=== PATIENT | male | born 1950 | race Caucasian/White ===

== ENCOUNTER 2017-12-08 01:45 | Emergency (ER) | payer MEDICARE, OTHER ==
[2017-12-08] MEDS ORDERED: Ketorolac Tromethamine 60 MG/2 ML VIAL ONE (06:03)
--- NOTE | 2017-12-08 09:21 | CT ---
PRELIMINARY REPORT/[facility]/EMERGENTY AFTER-HOURS PROCEDURE CT Abdomen and Pelvis Without Intravenous Contrast CLINICAL HISTORY: 67 years old, male; Injury or trauma; Fall; Initial encounter; Abrasion; Patient HX: [id number] presented to ed C/O worsening lower back pain since falling 2 weeks ago. Pt reports its mostly midline and worsen s whenever he stands up or moves. Pt denies leg movement exacerbating the pain. Pt denies abdominal p ain. Pt denies loss of bowel or bladder function. TECHNIQUE: Axial computed tomography images of the abdomen and pelvis without intravenous contrast. Coronal and sagittal reformatted images were created and reviewed. COMPARISON: No relevant prior studies available. FINDINGS: Lung bases: The visualized portions of the lung bases are normal. ABDOMEN: Liver: The liver is within normal limits for this noncontrast study. Punctate hypodensities in the li perlita dome are noted representing cysts but too small to fully characterize. Gallbladder and bile ducts: Multiple calcified gallstones are present. No ductal dilation. Pancreas: The pancreas appears normal. No ductal dilation. Spleen: There is a focal splenic hypodensity that cannot be further characterized on the current exam ination. Adrenals: The adrenal glands are normal. Kidneys and ureters: There is a simple cyst in the left kidney. There is a simple cyst in the right k idney. There are nonobstructing renal pelvic calculi on the RIGHT and possibly LEFT. Stomach and bowel: The stomach is normal. The duodenum is unremarkable. Moderate diverticulosis is pr esent in the sigmoid and descending colon. There is moderate colonic constipation. No obstruction. No mucosal thickening. Appendix: Normal appendix is possibly identified. No associated signs to suggest acute appendicitis. PELVIS: Bladder: The bladder is normal. No stones. Reproductive: The prostate gland demonstrates nonspecific parenchymal calcifications. ABDOMEN and PELVIS: Intraperitoneal space: Normal. No free air. No significant fluid collection. Bones/joints: There is an acute transverse fracture of the L1 vertebral body with less than 25% loss of vertebral body height and no retropulsion. No dislocation. Soft tissues: Normal. Vasculature: The vasculature demonstrates diffuse mild atherosclerotic calcification. No abdominal ao rtic aneurysm. Lymph nodes: Normal. No enlarged lymph nodes. IMPRESSION: Transverse L1 vertebral body fracture without retropulsion as above. Thank you for allowing us to participate in the care of your patient. Dictated and Authenticated by: Rayshawn Dunham MD 12/08/2017 6:27 AM Central Time ([place] & [place]) FINAL REPORT CT ABDOMEN AND PELVIS PERFORMED WITHOUT CONTRAST ENHANCEMENT: HISTORY: The patient is status post fall approximately 2 weeks ago. Persistent midline pain. FINDINGS: The lung bases are clear of any infiltrative process. No acute rib fractures are identified. The liver shows some small hypodensities in the dome, statistically most likely cysts. There is also a hypodense indistinct area within the spleen which measures 3 cm in size. It does not have the typ ical appearance of a splenic injury. It may represent some type of splenic mass incompletely charact erized on this exam. Given the history of the injury being approximately 2 weeks ago, it is possible that this is related to an older splenic injury. It would probably better characterized with contra st if indicated. The pancreas is atrophic and there are gallstones present. Right and left adrenal glands are normal in appearance. Hypodensities involving both kidneys are sta tistically most likely cysts. There are also bilateral nonobstructing calculi. There is no signific ant periaortic adenopathy. The aorta is ectatic but not aneurysmal. A moderate amount of stool is s een within the colon. CT OF PELVIS PERFORMED WITHOUT CONTRAST ENHANCEMENT: Sigmoid diverticulosis is noted. Appendix region is unremarkable. Review of osseous structures shows the presence of a superior end plate compression fracture of L1 of approximately 20%. This does appear to be more of an acute injury. No significant retropulsion see n. No canal stenosis. IMPRESSION: 1. Approximately 20% compression fracture of the superior end plate of L1. No evidence of any signi ficant bony retropulsion. 2. Incompletely characterized indistinct hypodensity measuring approximately 3 cm in size within the spleen. This could represent a splenic lesion such as a hemangioma; however, given the history of t rauma approximately 2 weeks ago, the possibility that this represents residual of the splenic injury should also be considered. This was discussed with Dr. Ramirez and the patient is still within the ER . I would suggest that possibly a contrast CT may help in better delineating this. 3. Gallstones and nonobstructing renal calculi. 4. Enlarged prostate. 5. Sigmoid diverticulosis. 6. Hypodensities involving the liver and kidney, most likely cysts. 7. This report is in agreement with the temporary report issued by [facility]. CODE CR POS: TPC
[2017-12-08 09:26] LABS: BUN (Urea Nitrogen) 18 mg/dL (8.4-25.7); Calc. Creatinine Clearance 0 mL/min (70-130); Calcium 9.5 mg/dL (7.8-10.44); Carbon Dioxide 27 mmol/L (23-31); Chloride 98 mmol/L (98-107); Estimated GFR-MDRD 37; Glucose 110 mg/dL (80-115); Potassium 4.7 mmol/L (3.5-5.1); Sodium 133 mmol/L (136-145)
[2017-12-08 09:41] LABS: Anion Gap 16 mmol/L (10-20)
[2017-12-08 10:14] LABS: Bilirubin Negative (Negative); Clarity CLOUDY (Clear); Glucose, Urine (Dipstick) Negative (Negative); Leukocyte Large (Negative); Nitrite Negative (Negative); Protein, Urine (Dipstick) Trace mg/dL (Neg-Trace); Specific Gravity, Urine 1.007 (1.002-1.036); pH, Urine 6.5 (5.0-9.0)
[2017-12-08 10:15] LABS: Blood, Urine Trace (Negative); RBC/HPF 0-3 HPF (0-3); Squamous Epithelial None Seen HPF (0-3)
[2017-12-08 10:16] LABS: Bacteria/HPF 2+ HPF (None Seen); Hyaline Casts/LPF NONE SEEN LPF (0-3 Hyaline)
--- NOTE | 2017-12-08 11:10 | CT ---
CT ABDOMEN AND PELVIS WITH CONTRAST: Date: 12/08/17 HISTORY: Patient fell 2 weeks ago with worsening low back pain and midline abdominal pain. COMPARISON: CT abdomen/pelvis without contrast dated 12/08/17. TECHNIQUE: Multiple contiguous axial images were obtained in a CT of the abdomen and pelvis with contrast. Coron al reformats were performed. FINDINGS: There are gallstones in the gallbladder. There is a hypodense region in the spleen measuring 3.4 cm in size which does not appear to demonstra te enhancement. This is nonspecific and could represent a cystic lesion. A splenic contusion is also a possibility. There are small exophytic hypodensities extending off the posterior aspect of both kidneys which like ly represent cysts. There are nonobstructing calcifications in both kidneys measuring up to 3.0 mm in size. A subcentimeter hypodensity along the dome of the left lobe of the liver likely represents a cyst. The adrenal glands and pancreas are unremarkable. No free air, free fluid, or stranding changes are s een in the abdomen or pelvis. Scattered diverticula are seen in the colon. The small bowel and appendix are unremarkable. No abdomi nal or pelvic lymphadenopathy seen. Atherosclerotic calcifications are seen in the aorta. Degenerative changes are seen in the spine. The visualized inferior thorax and abdominal wall soft ti ssues are unremarkable. IMPRESSION: 1. The splenic hypodensity is nonspecific. This could represent a splenic lesion such as a cyst. A c ontusion is also a possibility. A follow-up CT in 3 months is recommended to ensure stability and charlene luate for resolution. 2. Cholelithiasis. 3. Bilateral renal cysts. 4. Bilateral nonobstructing renal calcifications. 5. Diverticulosis. POS: NELDA
[2017-12-08] MEDS ORDERED: Amoxicillin/Potassium Clav 875 MG TAB ONE (11:12)
[2017-12-08] MEDS ORDERED: Iopamidol 370 76% 100 ML VIAL ONE (13:50)
== END 2017-12-08 12:11 | disposition home or self-care (01) ==
LOC: ERS 01:45
DX: S32.019A Unspecified fracture of first lumbar vertebra, initial encounter for closed fracture (principal); N39.0 Urinary tract infection, site not specified; I10 Essential (primary) hypertension; J44.9 Chronic obstructive pulmonary disease, unspecified; F17.210 Nicotine dependence, cigarettes, uncomplicated; W19.XXXA Unspecified fall, initial encounter
CPT/HCPCS: 36415; 74176; 74177; 80048; 81003; 81015; 87086; 96372; J1885

== ENCOUNTER 2020-05-02 13:35 | Inpatient (IN) | payer MEDICARE, OTHER ==
[2020-05-02 14:25] LABS: #Eosinphils 0.1 thou/uL (0.0-0.7); #Lymphocytes 1.5 thou/uL (1.20-3.40); #Neutrophils 14.1 thou/uL (1.40-6.50); %Basophils 0.1 % (0.0-1.0); %Eosinophils 0.7 % (0.0-10.0); %Lymphocytes 9.2 % (21.0-51.0); %Monocytes 5.7 % (0.0-10.0); %Neutrophils 84.3 % (42.0-75.0); Hemoglobin 17.6 g/dL (14.0-18.0); Mean Corpuscular HGB CONC 32.9 g/dL (32.0-36.0); Mean Corpuscular Hemoglobin 31.9 pg (27.0-31.0); Mean Corpuscular Volume 96.9 fL (78.0-98.0); Mean Platelet Volume 8.3 fL (7.4-10.4); Platelet Count 186 thou/uL (130-400); Red Blood Cell (RBC) Count 5.51 mill/uL (4.70-6.10); White Blood Cell (WBC) Count 16.7 thou/uL (4.8-10.8)
[2020-05-02] MEDS ORDERED: Ondansetron PF 4 MG/2 ML Vial ONE (14:31)
[2020-05-02] MEDS ORDERED: Morphine 4 MG/ML VIAL ONE ×2 (14:31→15:42)
[2020-05-02 14:48] LABS: AST (SGOT) 17 U/L (5-34); Anion Gap 20 mmol/L (10-20); Bilirubin, Total 0.9 mg/dL (0.2-1.2); Calc. Creatinine Clearance 0 mL/min (70-130); Calcium 8.3 mg/dL (7.8-10.44); Carbon Dioxide 23 mmol/L (23-31); Chloride 98 mmol/L (98-107); Estimated GFR-MDRD 62; Potassium 3.5 mmol/L (3.5-5.1); Protein, Total 6.7 g/dL (5.8-8.1); Sodium 137 mmol/L (136-145)
[2020-05-02 14:56] LABS: Albumin 3.6 g/dL (3.4-4.8); Globulin 3.1 g/dL (2.4-3.5)
[2020-05-02 15:02] LABS: Alkaline Phosphatase 108 U/L (40-110)
[2020-05-02 15:05] LABS: ALT (SGPT) 9 U/L (8-55); CK (CPK) 49 U/L (30-200)
--- NOTE | 2020-05-02 15:09 | RAD ---
EXAM: Single view of the chest HISTORY: Shortness of breath COMPARISON: 01/01/2015 FINDINGS: Single view of the chest shows an enlarged but stable cardiomediastinal silhouette. Athero sclerotic calcifications are seen in the aorta. There is no evidence of consolidation, mass, or pleural effusion. Degenerative changes are seen in the spine. IMPRESSION: No evidence of acute cardiopulmonary disease
--- NOTE | 2020-05-02 15:13 | RAD ---
EXAM: 2 views of the left hip HISTORY: Left hip pain after fall COMPARISON: None FINDINGS: 2 views of the left hip shows questionable malalignment along the inferior aspect of the fe moral neck which could represent an impacted minimally displaced femoral neck fracture. No degenerative changes are seen. No soft tissue swelling is present. IMPRESSION: Questionable left femoral neck fracture. A CT of the left hip is recommended for further evaluation.
--- NOTE | 2020-05-02 15:13 | RAD ---
Exam: Single view of the pelvis HISTORY: Pelvic and hip pain after fall COMPARISON: None FINDINGS: A single view the pelvis shows questionable malalignment of the cortex of the inferior aspe ct of the femoral neck which could represent a nondisplaced impacted femoral neck fracture. No degenerative changes seen in either hip. IMPRESSION: Possible left femoral neck fracture
[2020-05-02 15:33] LABS: Glucose 152 mg/dL (80-115)
--- NOTE | 2020-05-02 15:48 | CT ---
CT CERVICAL SPINE NONCONTRAST: DATE: 05/02/2020 HISTORY: cervical trauma: 69-year-old male status post fall FINDINGS: There are no jumped or perched facets. There is no evidence of acute fracture. The vertebral body hei ghts are maintained. There is no prevertebral soft tissue swelling. IMPRESSION: No evidence of acute fracture or acute traumatic subluxation.
[2020-05-02 15:53] LABS: BUN (Urea Nitrogen) 9 mg/dL (8.4-25.7)
--- NOTE | 2020-05-02 15:55 | CT ---
CT BRAIN WITHOUT CONTRAST: 05/02/20 HISTORY: Fall. Head injury. COMPARISON: 01/02/16. Chronic periventricular white matter changes are stable. The ventricular size is stable and the basi lar cisterns patent. No evidence of acute infarct, hemorrhage, midline shift or abnormal extra-axial fluid collections are seen. The bony calvarium is intact. The visualized paranasal sinuses and mastoid air cells are well aerated. There are small contusions in the frontal scalp bilaterally. IMPRESSION: No CT evidence of acute intracranial process. POS: MZA
--- NOTE | 2020-05-02 16:09 | CT ---
EXAM: CT Pelvis WO Con PROVIDED CLINICAL HISTORY: Left hip pain after a fall. COMPARISON: Radiographs left hip on 05/02/2020 FINDINGS: There is a comminuted fracture involving the left acetabulum with slight separation of fracture fragm ents. Fractures involve the superolateral acetabulum with the fracture extending obliquely to involve the posteromedial left acetabulum. Additional fracture planes are seen involving the medial a s well as the anteromedial chavis of the left acetabulum. A minimally displaced fracture of the left inferior pubic ramus is present. No fracture or dislocation is seen involving the proximal femurs bilaterally. Calcifications are seen in the prostate gland. Urinary bladder has a normal nonenhanced CT appearance aside from mild mass effect on the posterior wall of the urinary bladder from the prostate gland. Colonic diverticulosis is seen. Vascular calcifications in the infrarenal abdominal aorta and involving the iliac and femoral arterie s. Small fat-containing right inguinal canal is present. No free fluid or fluid collection is seen in the pelvis. IMPRESSION: 1. Comminuted fracture involving the left acetabulum with minimal separation of fracture fragments as described above. 2. Minimally and displaced fracture left inferior pubic ramus. 3. No evidence of a fracture involving the left proximal femur.
[2020-05-02 16:53] LABS: CKMB 3.6 ng/mL (0-6.6)
[2020-05-02 17:20] LABS: Bacteria/HPF None Seen HPF (None Seen); Bilirubin Negative (Negative); Blood, Urine 1+ (Negative); Clarity Clear (Clear); Glucose, Urine (Dipstick) Normal (Negative); Ketone, Urine Negative (Negative); Leukocyte Negative Leu/uL (Negative); Nitrite Negative (Negative); Protein, Urine (Dipstick) 20 mg/dL (Neg-Trace); Specific Gravity, Urine 1.006 (1.002-1.036); Squamous Epithelial None Seen HPF (0-3); Urobilinogen Normal mg/dL (Less than 2); WBC/HPF 0-3 HPF (0-3); pH, Urine 5.5 (5.0-9.0)
[2020-05-02] MEDS ORDERED: HumaLOG 300 UNITS/3 ML VIAL SC PRN ×2 (21:43)
[2020-05-02] MEDS ORDERED: Ondansetron ODT 4 MG TAB PO PRN (21:43)
[2020-05-02] MEDS ORDERED: Dextrose 5% in Water 1,000 ML IV PRN (21:43)
[2020-05-02] MEDS ORDERED: Dextrose 50% Abboject 50 ML SYRINGE SLOW IVP PRN (21:43)
[2020-05-02] MEDS ORDERED: Sodium Chloride 0.9% 1,000 ML IV SCH (21:43)
[2020-05-02] MEDS ORDERED: Ondansetron PF 4 MG/2 ML Vial IVP PRN (21:43)
[2020-05-02] MEDS ORDERED: Cyclobenzaprine 10 MG TAB PO PRN (21:54)
[2020-05-02] MEDS ORDERED: traMADol HCl 50 MG TAB PO PRN ×2 (21:54)
[2020-05-02] MEDS ORDERED: Melatonin 3 MG TAB PO PRN (21:55)
[2020-05-02 22:13] LABS: PTT 27.6 sec (22.9-36.1)
[2020-05-02] MEDS ORDERED: Furosemide 20 MG/2 ML VIAL SLOW IVP SCH (22:15)
[2020-05-02] MEDS: Ibuprofen 600 MG TAB PO SCH (22:26)
[2020-05-02 22:36] LABS: Troponin I 0.041 ng/mL (< 0.028)
--- NOTE | 2020-05-02 22:58 | HP ---
This is Zackary Carr PA-C dictating a report for Rayshawn Welch MD. CONSULTATIONS: Orthopedics, Dr. Kulkarni. HISTORY OF PRESENT ILLNESS: The patient is a 69-year-old man who was brought to the emergency department by ground EMS after a reported fall. He states that he has intermittent falls for several years due to balance problems. He does have a history and physical, which is from 2014, his last admission that confirms he has a history of syncope. The patient is a poor historian for some issues, but otherwise he matches up with his prior history. The patient was brought to the emergency department where he underwent evaluation and examination and was noted to have left acetabular fracture, left pubic rami fracture and indeterminate troponin and elevated BNP. ALLERGIES: NONE. CURRENT MEDICATIONS: Unknown. The patient did not bring his list with him. PAST MEDICAL HISTORY: Congestive heart failure, syncope, venous stasis, congestive heart failure, COPD, diabetes, obstructive sleep apnea, atrial fibrillation, hypertension, morbid obesity. According to his prior history and physical, he also is on Coumadin. PAST SURGICAL HISTORY: Right ankle surgery and right side of neck surgery. SOCIAL HISTORY: The patient denies drug or alcohol use, but smokes 1-1/2 pack of cigarettes per day. When I ask where he resides, he said that he lives here at the hospital. Later in my interview and exam, he was asked again and he reiterated that this is where he lives. According to records, it appears he lives here in [place]. REVIEW OF SYSTEMS: 10-point review of systems is negative as otherwise stated. PHYSICAL EXAMINATION: VITAL SIGNS: Blood pressure 113/82, heart rate 91, respirations 16, oxygen saturation is 95% on room air, temperature is 97.9. GENERAL: The patient is resting comfortably in bed. He is awake, alert, conversant, appears appropriate. He just has some confusion, giving him a [place] Coma Scale of 14. HEENT: Head is normocephalic and atraumatic. Eyes, extraocular motion intact. PERRLA bilaterally. Ears are atraumatic without discharge. Nose is atraumatic without discharge. Oropharynx is clear. NECK: Nontender. Trachea is midline with no JVD. CHEST: Clear to auscultation with moderate inspiratory and expiratory effort. HEART: Irregularly irregular consistent with his atrial fibrillation. ABDOMEN: Soft, nontender with active bowel sounds. EXTREMITIES: The patient has decreased sensation bilaterally in his lower extremities which he states is normal. He has very poor hygiene of his feet and marketed chronic venous stasis, but there do not appear to be any open wounds or ulcerations. Of note, the patient is resting on his left hip and appears comfortable. BACK: Atraumatic and nontender. LABORATORY FINDINGS: WBC 16.7, hemoglobin 17.6, hematocrit 53.3, platelets 186. Sodium 137, potassium 3.5, chloride 98, CO2 of 23, BUN 9, creatinine 1.17, glucose 152. LFTs are unremarkable. CK-MB 3.6, troponin 0.046. BNP 688. Urinalysis shows 11 to 20 rbc's, no wbc's, LE, nitrite, or bacteria. RADIOGRAPHIC REPORTS: AP chest x-ray shows no evidence of acute cardiopulmonary disease. There is a large but stable cardiomediastinal silhouette. CT of the brain without contrast shows no CT evidence of acute intracranial process. CT of the C-spine without contrast shows no acute fracture or acute traumatic subluxation. AP pelvis shows a possible left femoral neck fracture. Views of the left hip show a questionable left femoral neck fracture. CT of the pelvis without contrast shows a comminuted fracture involving the left acetabulum with minimal separation of fracture fragments. There is minimally and displaced fracture of the left inferior pubic rami fracture. There is no evidence of a fracture involving the left proximal femur. ASSESSMENT: 1. Status post ground level fall. 2. Left acetabular fracture. 3. Left inferior pubic rami fracture. 4. Indeterminate troponin. 5. History of congestive heart failure, chronic obstructive pulmonary disease, atrial fibrillation, and Coumadin use. 6. Acute traumatic pain. PLAN: Plan will be to admit the patient to the surgical floor. We will repeat his troponin and obtain INR. We will do pulmonary toilet, gastritis, mechanical VTE prophylaxis. Discussion of his fracture with Dr. Kulkarni, who reports that the patient will be nonweightbearing. The evaluation, examination, laboratory, and radiographic findings were discussed with Dr. Welch in the emergency department. Job ID: [id number]
[2020-05-02 22:59] VITALS: BMI 32.5
[2020-05-02] MEDS: Acetaminophen 325 MG TAB PO SCH (23:58)
[2020-05-03 05:32] LABS: #Eosinphils 0.2 thou/uL (0.0-0.7); #Lymphocytes 1.8 thou/uL (1.20-3.40); #Neutrophils 11.7 thou/uL (1.40-6.50); %Basophils 0.2 % (0.0-1.0); %Eosinophils 1.6 % (0.0-10.0); %Neutrophils 79.2 % (42.0-75.0); Hemoglobin 15.6 g/dL (14.0-18.0); Mean Corpuscular HGB CONC 32.9 g/dL (32.0-36.0); Mean Corpuscular Hemoglobin 32.2 pg (27.0-31.0); Mean Corpuscular Volume 97.9 fL (78.0-98.0); Mean Platelet Volume 8.9 fL (7.4-10.4); Platelet Count 177 thou/uL (130-400); RBC Distribution Width 14.1 % (11.5-14.5); Red Blood Cell (RBC) Count 4.86 mill/uL (4.70-6.10); White Blood Cell (WBC) Count 14.7 thou/uL (4.8-10.8)
[2020-05-03] MEDS: Acetaminophen 325 MG TAB PO SCH ×4 (05:53→23:23)
[2020-05-03] MEDS: Ibuprofen 600 MG TAB PO SCH ×3 (05:53→21:06)
[2020-05-03 06:02] LABS: Anion Gap 16 mmol/L (10-20); BUN (Urea Nitrogen) 13 mg/dL (8.4-25.7); Calc. Creatinine Clearance 52 mL/min (70-130); Calcium 8.2 mg/dL (7.8-10.44); Carbon Dioxide 25 mmol/L (23-31); Chloride 100 mmol/L (98-107); Estimated GFR-MDRD 32; Glucose 110 mg/dL (80-115); Magnesium 1.6 mg/dL (1.6-2.6); Potassium 4.3 mmol/L (3.5-5.1); Sodium 137 mmol/L (136-145)
[2020-05-03] MEDS ORDERED: Magnesium Sulfate 3 GM in Sodium Chloride 0.9% 250 ML 250 ML IVPB SCH (09:45)
[2020-05-03] MEDS ORDERED: Sodium Chloride 0.9% 500 ML IV SCH (09:45)
--- NOTE | 2020-05-03 12:03 | CON ---
DATE OF CONSULTATION: 05/03/2020 HISTORY OF PRESENT ILLNESS: Mr. Robles is a 69-year-old male, who has a history of multiple falls. The patient fell yesterday and was brought to the emergency room. CT scan revealed nondisplaced fractures of the left acetabulum and the left pubic ramus. I was consulted to evaluate the acetabular fracture and pelvic fracture. The patient denies neurologic complaints in left lower extremity. PHYSICAL EXAMINATION: The patient's left lower extremity is neurovascularly intact. He has pain with any intensive movement of the left hip, but there is no grinding or popping. IMAGING STUDIES: I reviewed the x-rays and CT scan and agreed the patient has nondisplaced fracture of the left acetabulum and essentially nondisplaced fracture of the left inferior pubic ramus. PLAN: We would not recommend any surgical intervention at this time on the left acetabulum or pubic ramus. We will have Physical Therapy work with the patient to get him out of bed. He can touchdown weightbear using a walker. Job ID: [id number]
[2020-05-03 12:25] LABS: Anion Gap 16 mmol/L (10-20); BUN (Urea Nitrogen) 16 mg/dL (8.4-25.7); Calc. Creatinine Clearance 41 mL/min (70-130); Calcium 8.2 mg/dL (7.8-10.44); Carbon Dioxide 27 mmol/L (23-31); Chloride 99 mmol/L (98-107); Estimated GFR-MDRD 24; Glucose 112 mg/dL (80-115); Potassium 3.8 mmol/L (3.5-5.1); Sodium 138 mmol/L (136-145)
[2020-05-03 12:32] LABS: Troponin I 0.179 ng/mL (< 0.028)
[2020-05-03 12:34] LABS: SARS-CoV-2 MS2 Positive; SARS-CoV-2 N Gene Negative; SARS-CoV-2 S Gene Negative; SARS-CoV-2 by NAA Not Detected (NotDetected); SARS-CoV-2 orf1ab Negative
[2020-05-03] MEDS: Sodium Chloride 0.9% 1,000 ML IV SCH (19:00)
--- NOTE | 2020-05-03 20:33 | PRG ---
DATE OF SERVICE: 05/03/2020 SUBJECTIVE: The patient remains on the surgical floor. He is hospital day 2 status post admission for ground level fall in which he sustained a nonoperative left acetabular fracture and left pubic rami fracture. The patient overnight had no reported issues. He was evaluated this morning by Dr. Kulkarni, who placed his weightbearing status in the chart. The patient was also evaluated by Dr. Welch, please see his note. PHYSICAL EXAMINATION: VITAL SIGNS: Temperature is 97.6, heart rate 92, blood pressure 137/92, respirations 18, oxygen saturation is 96% on 3 L via nasal cannula. GENERAL: The patient is resting comfortably in bed. He is asleep at the time of my visit and my second visit, but he awakens to general verbal stimuli. He will answer very basic questions, but still has significant confusion and we have unfortunately been unable to get a hold of any family members to tell us if this is his baseline. He was able this morning to state that he lives in [place] and the name of his brother Zackary Leonard. Unfortunately, he did not have a phone number for him. LUNGS: Have scattered rhonchi bilaterally that has improved since earlier. HEART: Irregularly rate and rhythm consistent with his atrial fibrillation. ABDOMEN: Soft, protuberant, nontender, with hypoactive bowel sounds. EXTREMITIES: Neurovascularly intact x4. LABORATORY FINDINGS: White blood cell count 14.7, hemoglobin 15.6, hematocrit 47.6, platelets 177. Sodium 137, potassium 4.3, chloride 100, CO2 of 25, BUN 13, creatinine 2.05, glucose 110, magnesium 1.6, phosphorus 4.0, troponin 0.179, which continues to be indeterminate. There are no radiographs reviewed this morning. ASSESSMENT: 1. Status post ground level fall. 2. Left acetabular fracture, treated nonoperatively. 3. Left pubic rami fracture, stable, treated nonoperatively. 4. Indeterminate troponin x3. 5. History of congestive heart failure. 6. Chronic obstructive pulmonary disease. 7. Sleep apnea. 8. Atrial fibrillation, and prior Coumadin use. 9. Altered mental status. 10. Acute kidney injury. PLAN: Plan will be to do gentle fluid hydration. Repeat labs in the morning. Begin physical and occupational therapy and work with Case Management for placement. As at this time with the patient's altered mental status, he is unable to make an informed decision currently. We will continue to follow along and assess this. Job ID: [id number]
[2020-05-03] MEDS: Senokot S 8.6-50 MG TAB PO SCH (21:06)
[2020-05-04] MEDS: Calcium Carbonate 500 MG ChewTAB PO PRN ×3 (02:57→19:38)
[2020-05-04 05:27] LABS: #Basophils 0.1 thou/uL (0.0-0.2); #Eosinphils 0.5 thou/uL (0.0-0.7); #Lymphocytes 1.2 thou/uL (1.20-3.40); #Monocytes 0.6 thou/uL (0.11-0.59); #Neutrophils 9.7 thou/uL (1.40-6.50); %Basophils 0.6 % (0.0-1.0); %Eosinophils 3.9 % (0.0-10.0); %Lymphocytes 10.1 % (21.0-51.0); %Monocytes 4.6 % (0.0-10.0); %Neutrophils 80.8 % (42.0-75.0); Hemoglobin 14.2 g/dL (14.0-18.0); Mean Corpuscular HGB CONC 32.1 g/dL (32.0-36.0); Mean Corpuscular Hemoglobin 31.7 pg (27.0-31.0); Mean Corpuscular Volume 98.9 fL (78.0-98.0); Mean Platelet Volume 9.1 fL (7.4-10.4); Platelet Count 163 thou/uL (130-400); RBC Distribution Width 14.2 % (11.5-14.5)
[2020-05-04] MEDS: Acetaminophen 325 MG TAB PO SCH ×3 (05:35→17:43)
[2020-05-04] MEDS: Ibuprofen 600 MG TAB PO SCH (05:35)
[2020-05-04 05:38] LABS: Anion Gap 17 mmol/L (10-20); BUN (Urea Nitrogen) 24 mg/dL (8.4-25.7); Calc. Creatinine Clearance 36 mL/min (70-130); Calcium 8.1 mg/dL (7.8-10.44); Carbon Dioxide 24 mmol/L (23-31); Chloride 97 mmol/L (98-107); Estimated GFR-MDRD 21; Glucose 110 mg/dL (80-115); Magnesium 2.1 mg/dL (1.6-2.6); Phosphorus 4.7 mg/dL (2.3-4.7); Potassium 3.7 mmol/L (3.5-5.1); Sodium 134 mmol/L (136-145)
[2020-05-04] MEDS ORDERED: Sodium Chloride 0.9% 500 ML IV SCH (06:00)
[2020-05-04] MEDS: Senokot S 8.6-50 MG TAB PO SCH ×2 (08:27→19:41)
[2020-05-04] MEDS: Polyethylene Glycol 3350 17 GM Packet PO SCH (08:27)
[2020-05-04] MEDS ORDERED: Aspirin 325 mg Enteric Coated Tablet PO SCH (09:00)
--- NOTE | 2020-05-04 11:05 | RAD ---
CHEST 1 VIEW: HISTORY: CHF. COMPARISON: Radiograph 2 days prior. FINDINGS: Heart size is mildly enlarged. The pulmonary vessels are mildly distended. No pneumothorax. No eff usion. IMPRESSION: Similar examination of the chest. No new acute superimposed intrathoracic abnormality. POS: HOME
[2020-05-04] MEDS: Sodium Chloride 0.9% 1,000 ML IV SCH (11:40)
--- NOTE | 2020-05-04 14:19 | PRG ---
DATE OF SERVICE: 05/04/2020 SUBJECTIVE: The patient was seen on the surgical floor. He is hospital day #3, status post admission for ground level fall, in which he sustained a nonoperative left acetabular fracture and left pubic rami fracture. The patient had no overnight events. His pain has been controlled. Unfortunately, the patient is somewhat confused, which seems to be his baseline, and unable to give phone numbers of next of kin. The patient is unaware of his medications and we have been unable to reconcile his home medications. OBJECTIVE: VITAL SIGNS: Temperature 98.5, pulse 95, respirations 20, SpO2 of 91% on nasal cannula 3 L, blood pressure 138/82. GENERAL: Resting comfortably in bed, awake, alert. RESPIRATORY: Good inspiratory and expiratory effort, nonlabored. CARDIAC: Irregular rate, irregular rhythm. ABDOMEN: Soft, nontender. EXTREMITIES: Neurovascularly intact x4. LABORATORY DATA: WBC 12.0, RBC 4.50, hemoglobin 14.2, hematocrit 44.4. Sodium 134, potassium 3.7, chloride 97, carbon dioxide 24, BUN 24, creatinine 2.99, estimated GFR 21, glucose 110, calcium 8.1, phosphorus 4.7, magnesium 2.1. BNP 1408.2. DIAGNOSTIC DATA: Chest x-ray, impression, heart size is mildly enlarged. Pulmonary vessels are mildly distended. No pneumothorax. No effusion. IMPRESSION: 1. Status post ground level fall. 2. Left acetabular fracture, treated nonoperatively. 3. Left pubic rami fracture, stable, treated nonoperatively. 4. Indeterminate troponin x3. 5. History of congestive heart failure. 6. History of chronic obstructive pulmonary disease and sleep apnea. 7. History of atrial fibrillation and prior Coumadin use. 8. Altered mental status. 9. Acute kidney injury, worsening. PLAN: Continue supportive care and pain regimen. Continue to increase physical and occupational therapy. The patient was gently hydrated with normal saline yesterday due to his acute kidney injury. The patient's renal function continues to worsen. Discontinue all nephrotoxic agents and change VTE prophylaxis to Heparin. We will hold off on diuresing the patient due to his acute kidney injury. The plan was discussed with Dr. Welch. We will have nursing staff monitor strict I's and O's. We will continue to attempt to reach family members for medications and placement decision making as the patient is altered. Job ID: [id number] [facility]
[2020-05-04] MEDS ORDERED: traMADol HCl 50 MG TAB PO PRN (17:48)
[2020-05-04] MEDS ORDERED: Furosemide 20 MG/2 ML VIAL SLOW IVP SCH ×2 (18:00→20:45)
[2020-05-04 19:13] LABS: Anion Gap 17 mmol/L (10-20); BUN (Urea Nitrogen) 31 mg/dL (8.4-25.7); Calc. Creatinine Clearance 31 mL/min (70-130); Calcium 8.6 mg/dL (7.8-10.44); Carbon Dioxide 26 mmol/L (23-31); Chloride 95 mmol/L (98-107); Estimated GFR-MDRD 17; Glucose 129 mg/dL (80-115); Magnesium 2.2 mg/dL (1.6-2.6); Phosphorus 5.5 mg/dL (2.3-4.7); Sodium 134 mmol/L (136-145)
[2020-05-04] MEDS: Heparin 5,000 UNITS/ML VIAL SC SCH (19:38)
[2020-05-04] MEDS: traMADol HCl 50 MG TAB PO SCH (19:39)
[2020-05-04] MEDS ORDERED: Sodium Chloride 0.9% 1,000 ML IV SCH (19:45)
[2020-05-04] MEDS: Tamsulosin HCl 0.4 MG CAP PO SCH (20:30)
[2020-05-05 05:08] LABS: #Eosinphils 0.4 thou/uL (0.0-0.7); #Lymphocytes 1.2 thou/uL (1.20-3.40); #Monocytes 0.6 thou/uL (0.11-0.59); #Neutrophils 6.9 thou/uL (1.40-6.50); %Basophils 0.3 % (0.0-1.0); %Eosinophils 4.2 % (0.0-10.0); %Lymphocytes 13.3 % (21.0-51.0); %Neutrophils 76.3 % (42.0-75.0); Hemoglobin 14.4 g/dL (14.0-18.0); Mean Corpuscular HGB CONC 33.4 g/dL (32.0-36.0); Mean Corpuscular Hemoglobin 32.4 pg (27.0-31.0); Mean Corpuscular Volume 97.2 fL (78.0-98.0); Mean Platelet Volume 9.1 fL (7.4-10.4); Platelet Count 153 thou/uL (130-400); Red Blood Cell (RBC) Count 4.45 mill/uL (4.70-6.10); White Blood Cell (WBC) Count 9.1 thou/uL (4.8-10.8)
[2020-05-05 05:30] LABS: Anion Gap 16 mmol/L (10-20); BUN (Urea Nitrogen) 30 mg/dL (8.4-25.7); Calc. Creatinine Clearance 34 mL/min (70-130); Calcium 8.4 mg/dL (7.8-10.44); Carbon Dioxide 26 mmol/L (23-31); Chloride 95 mmol/L (98-107); Estimated GFR-MDRD 20; Glucose 96 mg/dL (80-115); Magnesium 1.9 mg/dL (1.6-2.6); Phosphorus 4.9 mg/dL (2.3-4.7); Potassium 3.5 mmol/L (3.5-5.1); Sodium 133 mmol/L (136-145)
[2020-05-05] MEDS: Acetaminophen 325 MG TAB PO SCH ×5 (06:06→23:24)
[2020-05-05 06:38] LABS: Bacteria/HPF 2+ HPF (None Seen); Bilirubin Negative (Negative); Blood, Urine 2+ (Negative); Clarity Turbid (Clear); Glucose, Urine (Dipstick) Normal (Negative); Ketone, Urine Negative (Negative); Leukocyte 500 Leu/uL (Negative); Nitrite Negative (Negative); Protein, Urine (Dipstick) Negative (Neg-Trace); RBC/HPF 21-50 HPF (0-3); Specific Gravity, Urine 1.006 (1.002-1.036); Squamous Epithelial 0-3 HPF (0-3); Urobilinogen Normal mg/dL (Less than 2); WBC/HPF 21-50 HPF (0-3)
[2020-05-05] MEDS ORDERED: Furosemide 20 MG/2 ML VIAL SLOW IVP SCH (08:30)
[2020-05-05] MEDS ORDERED: Metoprolol Tartrate 50 MG TAB PO SCH (09:00)
[2020-05-05] MEDS: Sodium Chloride 0.9% 1,000 ML IV SCH ×2 (09:40→20:48)
[2020-05-05] MEDS: Senokot S 8.6-50 MG TAB PO SCH ×2 (09:43→20:27)
[2020-05-05] MEDS: Metoprolol Tartrate 50 MG TAB PO SCH ×2 (09:43→20:28)
[2020-05-05] MEDS: Heparin 5,000 UNITS/ML VIAL SC SCH ×3 (09:43→20:29)
[2020-05-05] MEDS: Polyethylene Glycol 3350 17 GM Packet PO SCH (09:43)
[2020-05-05] MEDS: traMADol HCl 50 MG TAB PO SCH ×2 (11:30→20:34)
[2020-05-05] MEDS: Calcium Carbonate 500 MG ChewTAB PO PRN (11:32)
[2020-05-05] MEDS ORDERED: Potassium Chloride 40 MEQ in Sodium Chloride 0.9% 250 ML 250 ML IVPB SCH (15:45)
[2020-05-05] MEDS: Tamsulosin HCl 0.4 MG CAP PO SCH (20:27)
[2020-05-06 05:31] LABS: Hemoglobin 13.9 g/dL (14.0-18.0); Mean Corpuscular HGB CONC 33.4 g/dL (32.0-36.0); Mean Corpuscular Hemoglobin 32.2 pg (27.0-31.0); Mean Corpuscular Volume 96.4 fL (78.0-98.0); Mean Platelet Volume 9.3 fL (7.4-10.4); Platelet Count 169 thou/uL (130-400); RBC Distribution Width 14.4 % (11.5-14.5); Red Blood Cell (RBC) Count 4.33 mill/uL (4.70-6.10); White Blood Cell (WBC) Count 7.3 thou/uL (4.8-10.8)
[2020-05-06] MEDS: Acetaminophen 325 MG TAB PO SCH ×3 (05:44→18:17)
[2020-05-06] MEDS: Sodium Chloride 0.9% 1,000 ML IV SCH ×2 (05:51→18:19)
[2020-05-06 06:18] LABS: Anion Gap 19 mmol/L (10-20); BUN (Urea Nitrogen) 32 mg/dL (8.4-25.7); Calc. Creatinine Clearance 42 mL/min (70-130); Calcium 8.7 mg/dL (7.8-10.44); Carbon Dioxide 22 mmol/L (23-31); Chloride 100 mmol/L (98-107); Estimated GFR-MDRD 25; Glucose 88 mg/dL (80-115); Magnesium 1.8 mg/dL (1.6-2.6); Phosphorus 3.2 mg/dL (2.3-4.7); Sodium 137 mmol/L (136-145)
[2020-05-06] MEDS ORDERED: Magnesium Sulfate 2 GM in Sodium Chloride 0.9% 100 ML IVPB SCH (07:45)
[2020-05-06] MEDS ORDERED: Magnesium 2 GM/50 ML 2 GM in Premix Bag 1 BAG IVPB SCH (08:00)
--- NOTE | 2020-05-06 08:46 | PRG ---
DATE OF SERVICE: 05/05/2020 SUBJECTIVE: The patient was seen on the surgical floor during morning rounds. He is hospital day #4, status post ground level fall, in which he sustained a nonoperative left acetabular fracture and a left pubic rami fracture. The patient was gently diuresed yesterday with good urinary output. The patient's pain continues to be controlled. Staff are still not able to reach patient's family to obtain a better history and medications. The patient does state that he gets his medications from the [place] in which they are mailed to him. Staff plans to reach out on Tuesday when they are open. OBJECTIVE: VITAL SIGNS: Temperature 98.1, pulse rate 100, respirations are 18, SpO2 of 94% on 2 L nasal cannula, and blood pressure 151/95. GENERAL: Elderly male, awake, alert, in no distress. RESPIRATORY: Crackles in the bases, no wheezing noted, no respiratory distress. Respirations are even and nonlabored. CARDIAC: Irregularly irregular rate. ABDOMEN: Soft, nontender, and nondistended. EXTREMITIES: Neurovascularly intact. LABORATORY DATA: WBC 9.1, RBC 4.45, hemoglobin 14.4, hematocrit 43.3, and platelets are 153. Sodium 131, potassium 3.5, chloride 95, carbon dioxide 26, BUN 30, creatinine 3.13, estimated GFR 20, glucose 96, calcium 8.4, phosphorus 4.9, and magnesium 1.9. BNP 1780.1. Urinalysis; positive bacteria, positive hyaline casts, positive leukocyte esterase. We will send for a culture. DIAGNOSTICS: No new diagnostics to review today. IMPRESSION: 1. Status post ground level fall. 2. Left acetabular fracture, treated nonoperatively. 3. Left pubic rami fracture, treated nonoperatively. 4. Indeterminate troponin x3. 5. History of congestive heart failure, chronic obstructive pulmonary disease, sleep apnea, atrial fibrillation, prior Coumadin use. 6. Altered mental status, likely dementia. 7. Acute kidney injury, slightly improved. PLAN: Continue supportive care and pain regimen. Increase physical and occupational therapy. Continue to gently diurese the patient. Continue to avoid all nephrotoxic agents. Continue to monitor strict I's and O's. Continue to reach out to family members and obtain medication list. The plan was discussed with Dr. Welch, who agrees. Job ID: [id number]
[2020-05-06] MEDS: Heparin 5,000 UNITS/ML VIAL SC SCH ×3 (08:53→20:22)
[2020-05-06] MEDS: Senokot S 8.6-50 MG TAB PO SCH ×2 (08:53→20:22)
[2020-05-06] MEDS: Metoprolol Tartrate 50 MG TAB PO SCH ×3 (08:54→21:47)
[2020-05-06] MEDS: Polyethylene Glycol 3350 17 GM Packet PO SCH (09:00)
[2020-05-06] MEDS ORDERED: Bisacodyl 10 MG SUPP PR SCH (09:00)
[2020-05-06] MEDS: traMADol HCl 50 MG TAB PO SCH (09:23)
[2020-05-06] MEDS ORDERED: Furosemide 40 MG/4 ML VIAL ONE (14:11)
[2020-05-06] MEDS: hydrALAZINE 20 MG/ML VIAL SLOW IVP PRN ×2 (14:14→19:03)
--- NOTE | 2020-05-06 16:39 | PQF ---
CLINICAL DOCUMENTATION CLARIFICATION FORM: Dear Alice SU AGACNP-BC Date: 05/06/2020 Please exercise your independent, professional judgment in responding to the clarification form. Clinical indicators are provided on the bottom of this form for your review. Please check appropriate box(es): CONGESTIVE HEART FAILURE: A. ACUITY [ x ] Acute on Chronic [ ] Chronic B. TYPE: [ ] Systolic / HFrEF [ ] Diastolic / HFpEF [ ] Combined Systolic / Diastolic [x ] Hypertensive Heart and Kidney disease [ ] Hypertensive Heart Disease [ ] Hypertensive Kidney Disease [ ] Other diagnosis [ ] Unable to determine In addition, please specify: Present on Admission (POA): [x ] Yes [ ] No [ ] Unable to determine For continuity of documentation, please document condition throughout progress notes and discharge summary. Thank You. To be completed by CDI/Coding staff for physician review: CLINICAL INDICATORS - SIGNS / SYMPTOMS / LABS / RESULTS AND LOCATION IN EMR 05/02 BNP 687.7 05/04 BMP 1408.2 > 2002.0 05/05 BNP 1780.1 05/06 BNP 2382.7 ED REPORT: 89% RA > 95% 2L/NC, FINAL DX: LEFT ACETABULAR FRACTURE, CHF, COPD NO EXACERBATION, FALL , INDETERMINATE TROPONIN, LEFT PUBIC RAMUS FRACTURE 05/02 H&P (FELICIA) ASSESSMENT : HISTORY OF CONGESTIVE HEART FAILURE 05/03 PN (IMPRESSION: HISTORY OF CONGESTIVE HEART FAILURE 05/04 ECHO REPORT: EF 60-65%, TACHYCARDIA, LEFT ATRIUM MODERATELY DILATED, MARKEDLY ENLARGED RT ATRIUM SIZE, TRACE MITRAL REGURGITATION IS PRESENT, INDIVIDUAL AORTIC VALVE LEAFLETS ARE NOT CLEARLY VISUALIZED, TRACE TRICUSPID REGURGITATION. RISKS FACTORS / RESULTS AND LOCATION IN EMR HX OF CHF, HYPERTENSION (H&P/ GAVIN) 05/02 TREATMENTS / RESULTS AND LOCATION IN EMR SUPPLEMENTAL OXYGEN ( 05/02 PRESENT) LASIX PO DAILY( 05/04) THANK YOU! CDS Signature: DEMI LOPEZ, VAUGHN Phone #: [phone] Date: This is a permanent part of the Medical Record [facility]
--- NOTE | 2020-05-06 16:58 | PRG ---
DATE OF SERVICE: SUBJECTIVE: The patient was seen during morning rounds sleeping and difficult to arouse. There were no overnight events. The patient continues to be confused and hallucinating off and on. 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 The patient frequently is asking for cigarettes. The patient does have sleep apnea and has not been on any CPAP since being in the hospital. The patient's pain medications have been held as the patient has been sleepy. The patient has not had a bowel movement. Urinary output has dropped off since being diuresed yesterday morning. I did speak with the patient's sister who agrees that the patient should not go back home to his apartment as he is unable to take care of himself alone. Plan is for the patient to go to a intermediate facility. Since the patient was sleeping most of the day, we had respiratory therapy come and place the patient on CPAP. The patient was more arousable after being on CPAP. Once the patient was arousable, he complained of left thigh pain. OBJECTIVE: VITAL SIGNS: Blood pressure 161/99, pulse 88, respirations 18, temperature 97.4, pulse ox 97% on room air. GENERAL: Elderly male, sleeping, difficult to arouse. HEENT: Unremarkable. RESPIRATORY: Crackles in the bases, scattered rhonchi, respirations are even and nonlabored. ABDOMEN: Soft, obese, nontender. EXTREMITIES: Neurovascularly intact x4. Moves all extremities. LABORATORY DATA: WBC 7.3, RBC 4.33, hemoglobin 13.9, hematocrit 41.7, platelets 169. Sodium 137, potassium 4.0, chloride 100, carbon dioxide 20, BUN 32, creatinine 2.54, estimated GFR 25, glucose 97, calcium 8.7, phosphorus 3.2, magnesium 1.8. BNP 2382.7. DIAGNOSTICS: Echocardiogram, impression; ejection fraction is visually estimated at 60% to 65%. Not well-visualized. The left atrium is moderately dilated. Markedly enlarged right atrium size. Trace mitral regurgitation is present. Individual aortic valve leaflets are not clearly visualized. Trace tricuspid regurgitation. IMPRESSION: 1. Ground level fall. 2. Left acetabular fracture, treated nonoperatively. 3. Left pubic rami fracture, treated nonoperatively. 4. Acute kidney injury, improving. 5. Altered mental status, likely dementia. 6. History of congestive heart failure, chronic obstructive pulmonary disease, sleep apnea, atrial fibrillation on prior Coumadin use. PLAN: Continue supportive care. Tramadol 50 mg p.r.n q.12 hours and not scheduled as the patient has been very sleepy today. Increase physical and occupational therapy. Gently diurese the patient. Replace electrolytes. We will repeat labs and a chest x-ray in the morning. The patient is pending placement decision likely a intermediate facility. The patient is ready for discharge at this time. Still need to reconcile patient's home medications. We will obtain from the [facility] in [place]. Job ID: [id number] MTDD
[2020-05-06] MEDS: Potassium Chloride 20 MEQ TAB PO SCH (20:22)
[2020-05-06] MEDS: Tamsulosin HCl 0.4 MG CAP PO SCH (20:22)
[2020-05-06] MEDS: Calcium Carbonate 500 MG ChewTAB PO PRN (21:17)
--- NOTE | 2020-05-06 22:43 | PRG ---
DATE OF SERVICE: 05/06/2020 SUBJECTIVE: The patient was seen this evening during rounds. He was sitting up in bed, resting comfortably, in sleep, with no signs of acute distress. Nursing reported they are going to place the patient on CPAP tonight and as well as give him his metoprolol. Hold parameters were adjusted. He has received Lasix 20 mg this evening. Continue IV fluids. OBJECTIVE: VITAL SIGNS: Temperature 98.2, pulse 100, respirations 18, oxygen saturation 99% on 2.5 L nasal cannula, blood pressure 123/73. GENERAL: Well-appearing elderly male, sitting up in bed with no signs of acute distress. PULMONARY: Equal chest rise and fall. Clear breath sounds bilaterally. No signs of acute respiratory distress. ASSESSMENT: 1. Status post ground level fall. 2. Left acetabular fracture and left pubic rami fracture, nonoperative. 3. Acute kidney injury, improving. 4. Altered mental status, improving. 5. History of congestive heart failure, syncope, venous stasis, chronic obstructive pulmonary disease, obstructive sleep apnea, atrial fibrillation, hypertension, and obesity. PLAN: Continue current heart-healthy diet with normal saline at 50 an hour. Med rec has been completed. Continue metoprolol. Start home Lasix tomorrow. Continue Perera for now. The patient has received additional IV Lasix this afternoon. CPAP at night. We will check an ammonia in the morning. Continue PT and OT. Job ID: [id number]
[2020-05-07] MEDS: Acetaminophen 325 MG TAB PO SCH ×5 (00:36→23:29)
[2020-05-07 03:28] LABS: #Eosinphils 0.2 thou/uL (0.0-0.7); #Monocytes 0.7 thou/uL (0.11-0.59); %Basophils 0.6 % (0.0-1.0); %Eosinophils 2.6 % (0.0-10.0); %Lymphocytes 14.3 % (21.0-51.0); %Monocytes 9.9 % (0.0-10.0); %Neutrophils 72.6 % (42.0-75.0); Hemoglobin 13.4 g/dL (14.0-18.0); Mean Corpuscular HGB CONC 32.8 g/dL (32.0-36.0); Mean Corpuscular Volume 97.4 fL (78.0-98.0); Mean Platelet Volume 8.7 fL (7.4-10.4); Platelet Count 166 thou/uL (130-400); RBC Distribution Width 14.3 % (11.5-14.5); Red Blood Cell (RBC) Count 4.21 mill/uL (4.70-6.10); White Blood Cell (WBC) Count 6.8 thou/uL (4.8-10.8)
[2020-05-07 03:48] LABS: Anion Gap 14 mmol/L (10-20); BUN (Urea Nitrogen) 34 mg/dL (8.4-25.7); Calc. Creatinine Clearance 49 mL/min (70-130); Calcium 8.2 mg/dL (7.8-10.44); Carbon Dioxide 28 mmol/L (23-31); Chloride 100 mmol/L (98-107); Estimated GFR-MDRD 30; Glucose 97 mg/dL (80-115); Magnesium 2.1 mg/dL (1.6-2.6); Potassium 3.9 mmol/L (3.5-5.1); Sodium 138 mmol/L (136-145)
[2020-05-07] MEDS: Mometasone 200 MCG/Formoterol 5 MCG 120 PUFF INHALER INH SCH ×2 (07:25→18:13)
--- NOTE | 2020-05-07 07:25 | RAD ---
CHEST 1 VIEW: Date: 05/07/2020 INDICATION: History of CHF. COMPARISON: Prior exam dated 05/04/2020. FINDINGS: There is persistent cardiomegaly. Pulmonary vascular congestion has mildly improved. Hazy air space o pacity remains within the right infrahilar region possibly related to pneumonia or edema. Costophreni c angles are excluded. No pneumothorax is evident. IMPRESSION: 1. Mild improvement in pulmonary vascular congestion. 2. Mild cardiomegaly persists. 3. Right infrahilar region demonstrates mild opacity possibly related to vascular crowding, air spac e edema, or pneumonia. POS: BH
[2020-05-07] MEDS ORDERED: ALBUTEROL SULFATE 90 MCG IH PRN (07:38)
[2020-05-07] MEDS ORDERED: PROVENTIL INHALER 6.7 G (200 INHALATIONS) INH PRN (07:49)
[2020-05-07] MEDS ORDERED: Non-Formulary Item 1 EACH (Budesonide/Formoterol Fumarate [Budesonide-Formoterol 160-4.5] IH SCH (09:00)
[2020-05-07] MEDS: Senokot S 8.6-50 MG TAB PO SCH ×2 (09:18→20:17)
[2020-05-07] MEDS: Polyethylene Glycol 3350 17 GM Packet PO SCH (09:18)
[2020-05-07] MEDS: Heparin 5,000 UNITS/ML VIAL SC SCH ×3 (09:19→20:16)
[2020-05-07] MEDS: Metoprolol Tartrate 25 MG TAB PO SCH ×2 (09:19→20:16)
[2020-05-07] MEDS: Finasteride 5 MG TAB PO SCH (09:19)
[2020-05-07] MEDS: Furosemide 20 MG TAB PO SCH (09:19)
[2020-05-07] MEDS: Potassium Chloride 20 MEQ TAB PO SCH ×2 (09:19→20:16)
[2020-05-07] MEDS: Cyanocobalamin (Vitamin B-12) 1,000 MCG TAB PO SCH (09:19)
[2020-05-07] MEDS: Sodium Chloride 0.9% 1,000 ML IV SCH (16:17)
[2020-05-07] MEDS ORDERED: Furosemide 20 MG/2 ML VIAL SLOW IVP SCH (17:15)
[2020-05-07] MEDS: Tamsulosin HCl 0.4 MG CAP PO SCH (20:16)
[2020-05-07] MEDS: Atorvastatin Calcium 20 MG TAB PO SCH (20:16)
[2020-05-07] MEDS ORDERED: Simvastatin 40 MG TAB PO SCH (21:00)
[2020-05-07] MEDS: Ammonium Lactate 12% Lotion 225 GM BOT TOP SCH (21:01)
--- NOTE | 2020-05-08 00:04 | PRG ---
DATE OF SERVICE: 05/07/2020 SUBJECTIVE: The patient was seen this evening during rounds. He was resting comfortably in bed, asleep, but easily arousable. At the time of our evaluation, he had no complaints and agreed to wear the CPAP while he sleeps. OBJECTIVE: VITAL SIGNS: Temperature 97.5, pulse 96, respirations 20, oxygen saturation 99% on 3 L nasal cannula, blood pressure 156/102. GENERAL: Elderly male, sitting up in bed with no signs of acute distress. PULMONARY: Equal chest rise and fall. No signs of acute respiratory distress. CARDIAC: Regular rate and rhythm. NEUROLOGIC: GCS is 14 to 15, -1 for confusion. ASSESSMENT: 1. Status post ground level fall. 2. Left acetabular fracture and left pubic rami fracture, both non-op. 3. Acute kidney injury, improving. 4. History of congestive heart failure, syncope, venous stasis, chronic obstructive pulmonary disease, obstructive sleep apnea, atrial fibrillation, hypertension, and obesity. PLAN: Continue current diet and pain regimen. Continue physical and occupational therapy. Continue CPAP at night. The patient is pending [facility] to a correction facility. Job ID: [id number]
[2020-05-08] MEDS: Acetaminophen 325 MG TAB PO SCH ×3 (05:44→18:17)
[2020-05-08 06:38] LABS: #Basophils 0.1 thou/uL (0.0-0.2); #Eosinphils 0.2 thou/uL (0.0-0.7); #Lymphocytes 1.1 thou/uL (1.20-3.40); #Monocytes 0.6 thou/uL (0.11-0.59); #Neutrophils 4.4 thou/uL (1.40-6.50); %Basophils 0.9 % (0.0-1.0); %Eosinophils 3.5 % (0.0-10.0); %Lymphocytes 17.7 % (21.0-51.0); %Monocytes 9.2 % (0.0-10.0); %Neutrophils 68.7 % (42.0-75.0); Hemoglobin 13.4 g/dL (14.0-18.0); Mean Corpuscular HGB CONC 31.7 g/dL (32.0-36.0); Mean Corpuscular Hemoglobin 31.2 pg (27.0-31.0); Mean Corpuscular Volume 98.7 fL (78.0-98.0); Mean Platelet Volume 8.3 fL (7.4-10.4); Platelet Count 167 thou/uL (130-400); RBC Distribution Width 14.4 % (11.5-14.5); Red Blood Cell (RBC) Count 4.28 mill/uL (4.70-6.10); White Blood Cell (WBC) Count 6.3 thou/uL (4.8-10.8)
[2020-05-08] MEDS: Mometasone 200 MCG/Formoterol 5 MCG 120 PUFF INHALER INH SCH ×2 (07:13→19:09)
[2020-05-08 07:15] LABS: Anion Gap 12 mmol/L (10-20); BUN (Urea Nitrogen) 31 mg/dL (8.4-25.7); Calc. Creatinine Clearance 62 mL/min (70-130); Calcium 8.4 mg/dL (7.8-10.44); Carbon Dioxide 30 mmol/L (23-31); Chloride 100 mmol/L (98-107); Estimated GFR-MDRD 39; Glucose 94 mg/dL (80-115); Magnesium 1.8 mg/dL (1.6-2.6); Phosphorus 2.9 mg/dL (2.3-4.7); Potassium 3.9 mmol/L (3.5-5.1); Sodium 138 mmol/L (136-145)
[2020-05-08] MEDS ORDERED: Potassium Phosphate 15 MMOL, Magnesium Sulfate 2 GM in Sodium Chloride 0.9% 250 ML 250 ML IVPB SCH (09:15)
[2020-05-08] MEDS: Potassium Chloride 20 MEQ TAB PO SCH ×2 (09:31→20:51)
[2020-05-08] MEDS: Ammonium Lactate 12% Lotion 225 GM BOT TOP SCH ×2 (09:31→20:52)
[2020-05-08] MEDS: Cyanocobalamin (Vitamin B-12) 1,000 MCG TAB PO SCH (09:31)
[2020-05-08] MEDS: Heparin 5,000 UNITS/ML VIAL SC SCH ×3 (09:31→20:51)
[2020-05-08] MEDS: Furosemide 20 MG TAB PO SCH (09:31)
[2020-05-08] MEDS: Finasteride 5 MG TAB PO SCH (09:32)
[2020-05-08] MEDS: Senokot S 8.6-50 MG TAB PO SCH ×2 (09:32→20:51)
[2020-05-08] MEDS: Polyethylene Glycol 3350 17 GM Packet PO SCH (09:32)
[2020-05-08] MEDS: Metoprolol Tartrate 25 MG TAB PO SCH ×2 (09:32→20:51)
--- NOTE | 2020-05-08 18:42 | PRG ---
DATE OF SERVICE: 05/08/2020 SUBJECTIVE: The patient was seen during morning rounds with Dr. Espinoza. The patient was awake, alert, sitting up in the neuro chair. The patient did wear his BiPAP overnight. The patient's pain is well controlled at this time. The patient is tolerating diet. Urinary output is adequate for patient's age and weight. OBJECTIVE: VITAL SIGNS: Temperature 97.7, pulse 92, respirations 16, SpO2 of 98% on 2 L nasal cannula, and blood pressure 127/85. GENERAL: Elderly male, awake, alert, no distress. HEENT: Unremarkable. RESPIRATORY: Respirations are even and nonlabored, scattered rhonchi. ABDOMEN: Soft, obese, nontender. EXTREMITIES: Neurovascularly intact, moves all extremities. NEUROLOGIC: No focal deficits, GCS baseline. LABORATORY DATA: WBC 6.3, hemoglobin 13.4, hematocrit 42.3, and platelets 167. Sodium 138, potassium 3.9, chloride 100, carbon dioxide 30, BUN 31, creatinine 1.73, estimated GFR 39, glucose 94, calcium 8.4, phosphorus 2.9, magnesium 8.1, and BNP 1637.6. DIAGNOSTICS: There are no new diagnostics to review today. IMPRESSION: 1. Ground level fall. 2. Left acetabular fracture, treated nonoperatively. 3. Left pubic rami fracture, treated nonoperatively. 4. Acute kidney injury, improving. 5. Altered mental status, likely dementia. 6. History of congestive heart failure, chronic obstructive pulmonary disease, sleep apnea, atrial fibrillation, on prior Coumadin use. PLAN: Continue supportive care and pain regimen. Continue to increase physical and occupational therapy. Continue the patient's home Lasix b.i.d. Replace electrolytes. The patient is ready for discharge. The patient was accepted to [facility] and was supposed to leave today, but was notified later this evening that they needed to get a BiPAP machine . No one has access to the patient's apartment to obtain his own BiPAP. We will continue BiPAP at night. The patient's sputum cultures show some mixed gram-positive cocci in pairs and clusters. The patient is afebrile. The patient's white count is normal. Chest x-ray did not show any indication of pneumonia. We will hold off on antibiotics at this time. The patient was examined by Dr. Espinoza during morning rounds. Job ID: [id number]
[2020-05-08] MEDS: Atorvastatin Calcium 20 MG TAB PO SCH (20:51)
[2020-05-08] MEDS: Tamsulosin HCl 0.4 MG CAP PO SCH (20:52)
[2020-05-09] MEDS: Acetaminophen 325 MG TAB PO SCH ×3 (00:08→13:22)
--- NOTE | 2020-05-09 00:50 | PRG ---
DATE OF SERVICE: 05/08/2020 SUBJECTIVE: Patient was seen this evening during rounds. He was sitting up in bed, resting comfortably and asleep with no signs of acute distress. His CPAP was in place. Nursing reported no acute events. OBJECTIVE: VITAL SIGNS: Temperature 98.2, pulse 94, respirations 17, oxygen saturation 93% on CPAP, blood pressure 154/100. GENERAL: Elderly male, sitting up in bed, asleep with CPAP in place. No signs of acute respiratory distress. PULMONARY: Equal chest rise and fall. No signs of acute respiratory distress. ASSESSMENT: 1. Status post ground level fall. 2. Left acetabular fracture. 3. Left pubic rami fracture. 4. Acute kidney injury, improving. 5. History of congestive heart failure, syncope, venous stasis, chronic obstructive pulmonary disease, obstructive sleep apnea, atrial fibrillation, hypertension, and obesity. PLAN: Continue current diet and pain regimen. Continue physical and occupational therapy. The patient is pending discharge to a residential facility. He is ready for discharge at this time. Job ID: [id number]
[2020-05-09 06:08] LABS: Anion Gap 13 mmol/L (10-20); BUN (Urea Nitrogen) 30 mg/dL (8.4-25.7); Calc. Creatinine Clearance 69 mL/min (70-130); Calcium 8.4 mg/dL (7.8-10.44); Carbon Dioxide 28 mmol/L (23-31); Chloride 100 mmol/L (98-107); Estimated GFR-MDRD 45; Glucose 89 mg/dL (80-115); Potassium 4.2 mmol/L (3.5-5.1); Sodium 137 mmol/L (136-145)
[2020-05-09] MEDS: Polyethylene Glycol 3350 17 GM Packet PO SCH (10:28)
[2020-05-09] MEDS: Metoprolol Tartrate 25 MG TAB PO SCH (10:28)
[2020-05-09] MEDS: Heparin 5,000 UNITS/ML VIAL SC SCH (10:28)
[2020-05-09] MEDS: Potassium Chloride 20 MEQ TAB PO SCH (10:28)
[2020-05-09] MEDS: Cyanocobalamin (Vitamin B-12) 1,000 MCG TAB PO SCH (10:29)
[2020-05-09] MEDS: Senokot S 8.6-50 MG TAB PO SCH (10:29)
[2020-05-09] MEDS: Ammonium Lactate 12% Lotion 225 GM BOT TOP SCH (10:29)
[2020-05-09] MEDS: Furosemide 20 MG TAB PO SCH (10:29)
[2020-05-09] MEDS: Finasteride 5 MG TAB PO SCH (10:29)
[2020-05-09] MEDS: Mometasone 200 MCG/Formoterol 5 MCG 120 PUFF INHALER INH SCH (10:31)
[2020-05-09 12:41] VITALS: BP 136/86; TEMP 98
--- NOTE | 2020-05-10 15:25 | EKG ---
Test Reason : Blood Pressure : / mmHG Vent. Rate : 094 BPM Atrial Rate : 098 BPM P-R Int : 000 ms QRS Dur : 138 ms QT Int : 466 ms P-R-T Axes : 000 -41 069 degrees QTc Int : 582 ms Atrial fibrillation Left axis deviation Right bundle branch block T wave abnormality, consider lateral ischemia Abnormal ECG Confirmed by EDA SIGALA DO ([id number]), photography editor RUFUS SINGH ([id number] on 05/10/2020 3:24:30 PM Referred By: Confirmed By:DEA SIGALA DO
== END 2020-05-09 15:00 | DRG 535 ==
LOC: ERS 13:35 → SURG A 19:19 → OBSVTOIN 05-03 16:49
PROVIDERS: ADMIT Surgery; ATTEND Surgery
DX: S32.592A Other specified fracture of left pubis, initial encounter for closed fracture (principal); S32.402A Unspecified fracture of left acetabulum, initial encounter for closed fracture; I13.0 Hypertensive heart and chronic kidney disease with heart failure and stage 1 through stage 4 chronic kidney disease, or unspecified chronic kidney disease; N17.9 Acute kidney failure, unspecified; Z20.828 Contact with and (suspected) exposure to other viral communicable diseases; W19.XXXA Unspecified fall, initial encounter; J44.9 Chronic obstructive pulmonary disease, unspecified; I48.91 Unspecified atrial fibrillation; E11.22 Type 2 diabetes mellitus with diabetic chronic kidney disease; F17.210 Nicotine dependence, cigarettes, uncomplicated; G47.33 Obstructive sleep apnea (adult) (pediatric); N18.9 Chronic kidney disease, unspecified; I50.9 Heart failure, unspecified; E66.01 Morbid (severe) obesity due to excess calories; Z79.01 Long term (current) use of anticoagulants; Z68.32 Body mass index [BMI] 32.0-32.9, adult
CPT/HCPCS: 36415; 36416; 36600; 51701; 70450; 71045; 72125; 72170; 72192; 80048; 80053; 81001; 81003; 81015; 82140; 82550; 82553; 83735; 83880; 84100; 84484; 85025; 85027; 85610; 85730; 87070; 87086; 87205; 87635; 93005; 93306; 94640; 94660; 96361; 96374; 96375; 96376; J0360; J1644; J1940; J2270; J2405; J3475; J3480; J7050; J7620; U0003